=== PATIENT | male | born 2000 | race African-American/Black ===

== ENCOUNTER 2022-01-10 17:33 | Emergency (ER) | payer MEDICAID, OTHER ==
[~2022-01-10] VITALS: Ht 190.5 cm; Wt 73.9 kg
[2022-01-10] MEDS ORDERED: LIDO5PAD8 EX (20:33)
[2022-01-10 21:04] VITALS: BP 121/65
== END 2022-01-10 21:09 | disposition home or self-care (01) ==
LOC: ER 17:33
DX: M62.830 Muscle spasm of back (principal)